=== PATIENT | male | born 1990 | race Caucasian/White ===

== ENCOUNTER 2024-10-06 16:24 | Observation (INO) ==
[2024-10-06] MEDS ORDERED: NS 1,000 ML IV 1,000 ML ONE (16:41)
[2024-10-06 16:51] VITALS: BMI 28.5
[2024-10-06 16:55] LABS: BASOPHILS # (AUTO) 0.1 X10^3/uL (0.0-0.1); BASOPHILS % (AUTO) 1.3 % (0.2-1.0); EOSINOPHILS # (AUTO) 0.1 x10^3/uL (0.0-0.2); EOSINOPHILS % (AUTO) 1.7 % (0.9-2.9); HEMATOCRIT 36.4 % (42.0-54.0); HEMOGLOBIN 12.1 g/dL (13.5-18.0); LYMPHOCYTES # (AUTO) 2.8 X10^3/uL (1.3-2.9); LYMPHOCYTES % (AUTO) 45.8 % (21.0-51.0); MEAN CORPUSCULAR HEMOGLOBIN 29.5 pg (27.0-34.0); MEAN CORPUSCULAR HGB CONC 33.3 g/dL (33.0-35.0); MEAN CORPUSCULAR VOLUME 88.5 fL (80.0-100.0); MEAN PLATELET VOLUME 7.1 fL (7.4-11.0); MONOCYTES # (AUTO) 0.4 x10^3/uL (0.3-0.8); MONOCYTES % (AUTO) 7.4 % (0.0-13.0); NEUTROPHILS # (AUTO) 2.6 x10^3/uL (2.2-4.8); NEUTROPHILS % (AUTO) 43.8 % (42.0-75.0); PLATELET COUNT 265 X10^3/uL (150.0-450.0); RED BLOOD COUNT 4.11 X10^6/uL (4.7-6.0); RED CELL DISTRIBUTION WIDTH 16.2 % (11.6-16.5)
[2024-10-06] MEDS: VANCOMYCIN IV *PREMIX 1 G/200 ML BAG 1 G/200 ML PIGGYBACK IV ONE ×2 (16:59→21:43)
[2024-10-06] MEDS: NS 1,000 ML IV 1,000 ML IV ONE ×2 (17:00→19:17)
[2024-10-06 17:09] LABS: ALANINE AMINOTRANSFERASE 14 Units/L (12-78); ALBUMIN 3.1 g/dL (3.4-5.0); ALKALINE PHOSPHATASE 86 Units/L (46-116); ASPARTATE AMINO TRANSFERASE 9 Units/L (15-37); BLOOD UREA NITROGEN 11 mg/dL (7-18); CARBON DIOXIDE 29.9 mmol/L (21-32); CHLORIDE 94 mmol/L (98-107); COR CA(FOR HYPOALB) 9.7 mg/dL (8.5-10.1); CREATININE 1.11 mg/dL (0.70-1.30); POTASSIUM 4.8 mmol/L (3.5-5.1); SODIUM 132 mmol/L (136-145); TOTAL PROTEIN 7.8 g/dL (6.4-8.2); eGFR NON BLACK RACES > 60 (>60)
[2024-10-06 17:11] LABS: COR NA(FOR HYPERGLY) 146 mmol/L (136-145); GLUCOSE 672 mg/dL (65-99)
[2024-10-06] MEDS: NovoLIN R (or HumuLIN R) SUBCUT ONE (17:23)
[2024-10-06 18:12] LABS: BILIRUBIN,URINE NEGATIVE (NEGATIVE); BLOOD/HEMOGLOBIN,URINE NEGATIVE (NEGATIVE); GLUCOSE, URINE 4+ (NEGATIVE); KETONES,URINE NEGATIVE (NEGATIVE); LEUKOCYTE ESTERASE ,URINE NEGATIVE (NEGATIVE); NITRITES,URINE NEGATIVE (NEGATIVE); PH,URINE 6.5 (5.0 - 8.0); PROTEIN,URINE NEGATIVE (NEGATIVE); UROBILINOGEN,URINE NORMAL (NORMAL)
[2024-10-06 18:13] LABS: APPEARANCE,URINE CLEAR (CLEAR); COLOR,URINE STRAW (YELLOW)
--- NOTE | 2024-10-06 19:37 | DR.EXTPAIN ---
HPI Time seen Time Seen by Provider: 10/06/24 16:42 PCP Primary Care Physician: morgan HPI Comment HPI Comment: Patient with a long history of diabetes and diabetic ulcers on his feet which she states has been going on for 6 years. The wound on the left second toe has been going on for 2 months. Patient's that he was recently seen in [place] and given antibiotics. Patient states he finished his antibiotics (he does not know which kind) about a week ago and his feet started getting red and swollen and the warts have been smelling foul and oozing. The large wound on the right great toe seems to be worse and he said he thinks his toe is going to fall off. Patient states he smokes between 2 and 3 packs a day. Patient states he did cocaine yesterday and does use recreational drugs. Patient states he is also homeless and that he does not have the money to pay for medications so he has not been taking any medications. He denies any fever. Patient states he has no sensation in his feet. Denies pain at this time. Complaint/Symptoms Chief Complaint:: Pt states he has had issues with diabetic wounds on his bilat great toes "for 6 years"; the wound on left second toe for about 2 months. He states "my toe beside the big one is about to fall off"; states the pain at bilat toes is 8/10; has not taken any meds today. Pt states he is diabetic. Self Treatment fo Chief Complaint: Went to [place] [facility] about a month ago, was treated with antibiotics which he did say he completed COVID-19 Coronavirus risk:travel/contact w/high risk person: No Has patient experienced Coronavirus symptoms: No Source History Provided: Patient Mode of arrival Mode of Arrival: Ambulatory Timing Onset of Chief Complaint: 10/06/24 PMH PMH Past Medical History: Yes Past Medical History: Diabetes Past Surgical History: No Family History History of Family Medical Conditions: Yes Family Medical History: Diabetes Mellitus Social History Does patient currently use any type of tobacco product: Yes Have you used tobacco products in the last 12 months: Yes Type of Tobacco Use: Cigarettes Alcohol Use: None Do you use any recreational Drugs:: Yes (cocaine, used yesterday) Lives Where: Homeless Travel Risk Coronavirus risk:travel/contact w/high risk person: No Has patient experienced Coronavirus symptoms: No Infectious screening In the last 2 months have you had wt loss of >10#?: NO Have you had fever, night sweats or hemotysis?: No Have you traveled outside the country in the last 6 months?: No Isolation: Contact ROS Review of Systems Constitutional: No Symptoms Reported Eyes: No Symptoms Reported ENTM: No Symptoms Reported Respiratoy: No Symptoms Reported Cardiovascular: No Symptoms Reported Gastrointestinal/Abdominal: No Symptoms Reported Genitourinary: No Symptoms Reported Neurological: Pre-existing Deficit (Diabetic peripheral neuropathy unchanged fro m previous) Musculoskeletal: No Symptoms Reported Integumentary: See HPI Hematologic/Lymphatic: No Symptoms Reported Endocrine: No Symptoms Reported Psychiatric: No Symptoms Reported All Other Systems: Reviewed and Negative PE Vital Signs Vitals: Vital Signs Temperature 98.1 F Pulse Rate 97 Respiratory Rate 18 Blood Pressure 132/70 O2 Sat by Pulse Oximetry 98 General Limitations: No Limitations General Appearance: Alert and In No Apparent Distress Head Head Exam: Normal Inspection Eyes Eye exam: Normal Appearance ENT ENT Exam: Normal Exam Neck Neck Exam: Normal Inspection Chest Chest Inspection: Normal Inspection Respiratory Respiratory Exam: Normal Lung Sounds Bilat Cardiovascular Cardiovascular Exam: Regular Rate and Normal Rhythm Abdominal Exam Abdominal Exam: Normal Inspection, Normal Bowel Sounds and Soft Extremities Extremities Exam: Other (Multiple diabetic ulcers on bilateral lower extremity with some exudate and surrounding erythema.) Back Back Exam: Normal Inspection Neurological Neurological Exam: Alert, Oriented X3 and CN II-XII Intact Psychiatric Psychiatric Exam: Normal Affect and Normal Mood Skin Skin Exam: Warm, Dry, Intact and Normal Color COURSE Treatment Treatment: Discussed importance of taking medications as instructed, not smoking and not using cocaine or other illegal drugs. Discussed findings of workup. Patient is agreeable to admission for IV antibiotics. Consultation Called: 19:54 Consultation Comments: Discussed case with Dr. Seaman and he is agreeable to admission. [facility] Labs Reviewed 10/06/24 16:50 10/06/24 16:50 Laboratory: WBC 6.0 X10^3/uL (3.6-10.0) 10/06/24 16:50 RBC 4.11 X10^6/uL (4.7-6.0) L 10/06/24 16:50 Hgb 12.1 g/dL (13.5-18.0) L 10/06/24 16:50 Hct 36.4 % (42.0-54.0) L 10/06/24 16:50 MCV 88.5 fL (80.0-100.0) 10/06/24 16:50 MCH 29.5 pg (27.0-34.0) 10/06/24 16:50 MCHC 33.3 g/dL (33.0-35.0) 10/06/24 16:50 RDW 16.2 % (11.6-16.5) 10/06/24 16:50 Plt Count 265 X10^3/uL (150.0-450.0) 10/06/24 16:50 MPV 7.1 fL (7.4-11.0) L 10/06/24 16:50 Neut % (Auto) 43.8 % (42.0-75.0) 10/06/24 16:50 Lymph % (Auto) 45.8 % (21.0-51.0) 10/06/24 16:50 [place] % (Auto) 7.4 % (0.0-13.0) 10/06/24 16:50 Eos % (Auto) 1.7 % (0.9-2.9) 10/06/24 16:50 Baso % (Auto) 1.3 % (0.2-1.0) H 10/06/24 16:50 Neut # (Auto) 2.6 x10^3/uL (2.2-4.8) 10/06/24 16:50 Lymph # (Auto) 2.8 X10^3/uL (1.3-2.9) 10/06/24 16:50 [place] # (Auto) 0.4 x10^3/uL (0.3-0.8) 10/06/24 16:50 Eos # (Auto) 0.1 x10^3/uL (0.0-0.2) 10/06/24 16:50 Baso # (Auto) 0.1 X10^3/uL (0.0-0.1) 10/06/24 16:50 Absolute Nucleated RBC 0.0 /100WBC 10/06/24 16:50 Sodium 132 mmol/L (136-145) L 10/06/24 16:50 Corrected Sodium 146 mmol/L (136-145) H 10/06/24 16:50 Potassium 4.8 mmol/L (3.5-5.1) 10/06/24 16:50 Chloride 94 mmol/L (98-107) L 10/06/24 16:50 Carbon Dioxide 29.9 mmol/L (21-32) 10/06/24 16:50 BUN 11 mg/dL (7-18) 10/06/24 16:50 Creatinine 1.11 mg/dL (0.70-1.30) 10/06/24 16:50 Est GFR (MDRD) Af Amer > 60 (>60) 10/06/24 16:50 Est GFR (MDRD) Non-Af > 60 (>60) 10/06/24 16:50 Glucose 672 mg/dL (65-99) H* 10/06/24 16:50 POC Glucose (mg/dL) 468 mg/dL (65-99) H 10/06/24 19:15 Calcium 9.0 mg/dL (8.5-10.1) 10/06/24 16:50 Corrected Calcium 9.7 mg/dL (8.5-10.1) 10/06/24 16:50 Total Bilirubin 0.40 mg/dL (0.2-1.0) 10/06/24 16:50 AST 9 Units/L (15-37) L 10/06/24 16:50 ALT 14 Units/L (12-78) 10/06/24 16:50 Alkaline Phosphatase 86 Units/L (46-116) 10/06/24 16:50 C-Reactive Protein 56.70 mg/L (0-3.0) H 10/06/24 16:50 Total Protein 7.8 g/dL (6.4-8.2) 10/06/24 16:50 Albumin 3.1 g/dL (3.4-5.0) L 10/06/24 16:50 Globulin 4.7 g/dL (2.5-4.5) H 10/06/24 16:50 Albumin/Globulin Ratio 0.7 Ratio (1.1-2.1) L 10/06/24 16:50 Specimen Type Clean catch urine 10/06/24 18:00 Urine Color Straw (YELLOW) 10/06/24 18:00 Urine Appearance Clear (CLEAR) 10/06/24 18:00 Urine pH 6.5 (5.0 - 8.0) 10/06/24 18:00 Ur Specific [place] 1.015 (1.000-1.030) 10/06/24 18:00 Urine Protein Negative (NEGATIVE) 10/06/24 18:00 Urine Glucose (UA) 4+ (NEGATIVE) 10/06/24 18:00 Urine Ketones Negative (NEGATIVE) 10/06/24 18:00 Urine Blood Negative (NEGATIVE) 10/06/24 18:00 Urine Nitrite Negative (NEGATIVE) 10/06/24 18:00 Urine Bilirubin Negative (NEGATIVE) 10/06/24 18:00 Urine Urobilinogen Normal (NORMAL) 10/06/24 18:00 Ur Leukocyte Esterase Negative (NEGATIVE) 10/06/24 18:00 Acetone, Semi-Quant Negative (NEGATIVE) 10/06/24 16:50 Opioid Opioid Risk Tool Age (Aly box if 16-45): Yes History of Preadolescent Sexual Abuse: No Total: 1 Total Score Risk Category: Low Risk Copyright: [facility] predicting aberrant behaviors Discharge Plan Diagnosis Discharge Problem: Diabetes, Drug abuse, cocaine type, Smoker unmotivated to quit Diabetic foot ulcer Qualifiers: Non-pressure ulcer stage: with muscle involvement without evidence of necrosis Discharge Plan Patient Disposition: ADMITTED INPATIENT Condition: Stable Prescriptions: No Action [facility] Concerns: Post Hospitalization: new medications and changes needed to prevent readmission or further decline. Pt educated and given instructions on all concerns. Plan of Treatment: Continue with present treatment and follow up plan. Pt is to keep follow up appointment as instructed and take medications as ordered. Orders to Discharge Patient Discharge Orders: Transfer (Routine); Ordered 10/06/24 Ordered By: Kaleb Mcpherson Follow ups/Referrals Follow ups/Referrals: [facility],None [Primary Care Provider] - 3 days Instructions Stand Alone Forms: Find Help Web Site, Post Hospital Follow Up Care
[2024-10-06] MEDS: NovoLIN R (or HumuLIN R) IV ONE (19:44)
[2024-10-06] MEDS: ZOSYN VIAL 3.375 GRAMS 3.375 G in NS 100 ML IV 100 ML IV SCH (21:00)
[2024-10-06] MEDS: NS 1,000 ML IV 1,000 ML IV SCH (21:00)
[2024-10-06] MEDS: NS 250 ML IV 25 ML IV PRN (21:00)
[2024-10-06] MEDS ORDERED: NovoLIN R (or HumuLIN R) SUBCUT PRN ×2 (21:00)
[2024-10-06] MEDS: SNACK - Diabetic Appropriate PO SCH (21:43)
[2024-10-06] MEDS: NovoLIN R (or HumuLIN R) SUBCUT PRN (23:12)
[2024-10-07 04:51] LABS: BASOPHILS # (AUTO) 0.1 X10^3/uL (0.0-0.1); BASOPHILS % (AUTO) 0.9 % (0.2-1.0); EOSINOPHILS # (AUTO) 0.2 x10^3/uL (0.0-0.2); EOSINOPHILS % (AUTO) 2.6 % (0.9-2.9); HEMATOCRIT 33.6 % (42.0-54.0); HEMOGLOBIN 11.3 g/dL (13.5-18.0); LYMPHOCYTES # (AUTO) 2.9 X10^3/uL (1.3-2.9); LYMPHOCYTES % (AUTO) 48.6 % (21.0-51.0); MEAN CORPUSCULAR HEMOGLOBIN 29.3 pg (27.0-34.0); MEAN CORPUSCULAR HGB CONC 33.7 g/dL (33.0-35.0); MEAN PLATELET VOLUME 7.7 fL (7.4-11.0); MONOCYTES # (AUTO) 0.4 x10^3/uL (0.3-0.8); MONOCYTES % (AUTO) 7.3 % (0.0-13.0); NEUTROPHILS # (AUTO) 2.4 x10^3/uL (2.2-4.8); NEUTROPHILS % (AUTO) 40.6 % (42.0-75.0); PLATELET COUNT 249 X10^3/uL (150.0-450.0); RED BLOOD COUNT 3.86 X10^6/uL (4.7-6.0); RED CELL DISTRIBUTION WIDTH 16.3 % (11.6-16.5); WHITE BLOOD COUNT 5.9 X10^3/uL (3.6-10.0)
[2024-10-07 05:12] LABS: ALANINE AMINOTRANSFERASE 14 Units/L (12-78); ALBUMIN 2.6 g/dL (3.4-5.0); ALKALINE PHOSPHATASE 75 Units/L (46-116); ASPARTATE AMINO TRANSFERASE 9 Units/L (15-37); BLOOD UREA NITROGEN 9 mg/dL (7-18); CALCIUM 8.8 mg/dL (8.5-10.1); CARBON DIOXIDE 27.6 mmol/L (21-32); CHLORIDE 102 mmol/L (98-107); COR CA(FOR HYPOALB) 9.9 mg/dL (8.5-10.1); COR NA(FOR HYPERGLY) 145 mmol/L (136-145); CREATININE 0.87 mg/dL (0.70-1.30); GLUCOSE 423 mg/dL (65-99); POTASSIUM 4.1 mmol/L (3.5-5.1); SODIUM 137 mmol/L (136-145); TOTAL PROTEIN 6.7 g/dL (6.4-8.2); eGFR NON BLACK RACES > 60 (>60)
[2024-10-07] MEDS: NovoLIN R (or HumuLIN R) ONE ×2 (07:25)
[2024-10-07] MEDS: CONSULT PHARMACY - POTASSIUM & MAGNESIUM XX SCH (07:39)
[2024-10-07] MEDS: VANCOMYCIN IV *PREMIX 1.5 G/300 ML BAG 1.5 G/300 ML PIGGYBACK IV SCH (08:30)
[2024-10-07] MEDS: NS 250 ML IV 0 ML IV ONE (08:40)
--- NOTE | 2024-10-07 08:55 | DR.H&P ---
H&P History & Physical for Day of: H&P Date: 10/06/24 Chief Complaint Chief Complaint: INFECTED WOUND RIGHT FOOT, HIGH BLOOD SUGAR History of Present Illness History of Present Illness: Patient with a long history of diabetes and diabetic ulcers on his feet which she states has been going on for 6 years. The wound on the left second toe has been going on for 2 months. Patient's that he was recently seen in [place] and given antibiotics. Patient states he finished his antibiotics (he does not know which kind) about a week ago and his feet started getting red and swollen and the warts have been smelling foul and oozin g. The large wound on the right great toe seems to be worse and he said he thinks his toe is going to fall off. Patient states he smokes between 2 and 3 packs a day. Patient states he did cocaine yesterday and does use recreational drugs. Patient states he is also homeless and that he does not have the money to pay for medications so he has not been taking any medications. He denies any fever. Patient states he has no sensation in his feet. Denies pain at this time. Past Medical History Past Medical History: Diabetes Family History Family Medical History: Diabetes Mellitus Social History Does patient currently use any type of tobacco product: Yes Have you used tobacco products in the last 12 months: Yes Type of Tobacco Use: Cigarettes Does any household member use tobacco: Yes Alcohol Use: None Drug Use: Cocaine Medications Home Medications: Home Medications Medication Instructions Recorded Confirmed Type NK 10/06/24 10/06/24 History Allergies Allergies Allergy/AdvReac Type Severity Reaction Status Date / Time No Known Allergies Allergy Verified 10/06/24 16:35 Labs 10/07/24 04:03 10/07/24 04:03 Labs: 10/06/24 19:50 Toe - Left Big Wound Gram Stain - Final 10/06/24 19:50 Toe - Right Big Wound Gram Stain - Final Laboratory WBC 5.9 X10^3/uL (3.6-10.0) 10/07/24 04:03 RBC 3.86 X10^6/uL (4.7-6.0) L 10/07/24 04:03 Hgb 11.3 g/dL (13.5-18.0) L 10/07/24 04:03 Hct 33.6 % (42.0-54.0) L 10/07/24 04:03 MCV 87.0 fL (80.0-100.0) 10/07/24 04:03 MCH 29.3 pg (27.0-34.0) 10/07/24 04:03 MCHC 33.7 g/dL (33.0-35.0) 10/07/24 04:03 RDW 16.3 % (11.6-16.5) 10/07/24 04:03 Plt Count 249 X10^3/uL (150.0-450.0) 10/07/24 04:03 MPV 7.7 fL (7.4-11.0) 10/07/24 04:03 Neut % (Auto) 40.6 % (42.0-75.0) L 10/07/24 04:03 Lymph % (Auto) 48.6 % (21.0-51.0) 10/07/24 04:03 [place] % (Auto) 7.3 % (0.0-13.0) 10/07/24 04:03 Eos % (Auto) 2.6 % (0.9-2.9) 10/07/24 04:03 Baso % (Auto) 0.9 % (0.2-1.0) 10/07/24 04:03 Neut # (Auto) 2.4 x10^3/uL (2.2-4.8) 10/07/24 04:03 Lymph # (Auto) 2.9 X10^3/uL (1.3-2.9) 10/07/24 04:03 [place] # (Auto) 0.4 x10^3/uL (0.3-0.8) 10/07/24 04:03 Eos # (Auto) 0.2 x10^3/uL (0.0-0.2) 10/07/24 04:03 Baso # (Auto) 0.1 X10^3/uL (0.0-0.1) 10/07/24 04:03 Absolute Nucleated RBC 0.1 /100WBC 10/07/24 04:03 Sodium 137 mmol/L (136-145) 10/07/24 04:03 Corrected Sodium 145 mmol/L (136-145) 10/07/24 04:03 Potassium 4.1 mmol/L (3.5-5.1) 10/07/24 04:03 Chloride 102 mmol/L (98-107) 10/07/24 04:03 Carbon Dioxide 27.6 mmol/L (21-32) 10/07/24 04:03 BUN 9 mg/dL (7-18) 10/07/24 04:03 Creatinine 0.87 mg/dL (0.70-1.30) 10/07/24 04:03 Est GFR (MDRD) Af Amer > 60 (>60) 10/07/24 04:03 Est GFR (MDRD) Non-Af > 60 (>60) 10/07/24 04:03 Glucose 423 mg/dL (65-99) H 10/07/24 04:03 POC Glucose (mg/dL) 420 mg/dL (65-99) H 10/07/24 05:03 Calcium 8.8 mg/dL (8.5-10.1) 10/07/24 04:03 Corrected Calcium 9.9 mg/dL (8.5-10.1) 10/07/24 04:03 Total Bilirubin 0.20 mg/dL (0.2-1.0) 10/07/24 04:03 AST 9 Units/L (15-37) L 10/07/24 04:03 ALT 14 Units/L (12-78) 10/07/24 04:03 Alkaline Phosphatase 75 Units/L (46-116) 10/07/24 04:03 C-Reactive Protein 56.70 mg/L (0-3.0) H 10/06/24 16:50 Total Protein 6.7 g/dL (6.4-8.2) 10/07/24 04:03 Albumin 2.6 g/dL (3.4-5.0) L 10/07/24 04:03 Globulin 4.1 g/dL (2.5-4.5) 10/07/24 04:03 Albumin/Globulin Ratio 0.6 Ratio (1.1-2.1) L 10/07/24 04:03 Specimen Type Clean catch urine 10/06/24 18:00 Urine Color Straw (YELLOW) 10/06/24 18:00 Urine Appearance Clear (CLEAR) 10/06/24 18:00 Urine pH 6.5 (5.0 - 8.0) 10/06/24 18:00 Ur Specific [place] 1.015 (1.000-1.030) 10/06/24 18:00 Urine Protein Negative (NEGATIVE) 10/06/24 18:00 Urine Glucose (UA) 4+ (NEGATIVE) 10/06/24 18:00 Urine Ketones Negative (NEGATIVE) 10/06/24 18:00 Urine Blood Negative (NEGATIVE) 10/06/24 18:00 Urine Nitrite Negative (NEGATIVE) 10/06/24 18:00 Urine Bilirubin Negative (NEGATIVE) 10/06/24 18:00 Urine Urobilinogen Normal (NORMAL) 10/06/24 18:00 Ur Leukocyte Esterase Negative (NEGATIVE) 10/06/24 18:00 Acetone, Semi-Quant Negative (NEGATIVE) 10/06/24 16:50 Review of Systems Constitutional: No Symptoms Reported Eyes: No Symptoms Reported ENT: No Symptoms Reported Respiratory: No Symptoms Reported Cardiovascular: No Symptoms Reported Gastrointestinal: No Symptoms Reported Genitourinary: No Symptoms Reported Musculoskeletal: Leg Pain and Foot Pain Skin: Wound Neurological: No Symptoms Reported Physical Exam Vital Signs: Vital Signs Temperature 97.3 F Temperature 98.0 F Pulse Rate [Left] 69 Pulse Rate [Left] 75 Respiratory Rate 20 Respiratory Rate 18 Blood Pressure [Left Arm] 101/56 Blood Pressure [Left Arm] 105/54 O2 Sat by Pulse Oximetry 98 O2 Sat by Pulse Oximetry 98 Oriented: Normal Eyes: Normal Ear: Normal Nose: Normal Throat: Dry Respiratory: RLL Diminished and LLL Diminished Cardiovascular: Normal Auscultation: Bowel Sounds: Normal Palpation: Normal Tenderness: Diffuse, Epigastric and Mild Skin: Normal, Decreased Turgur, Red, Tender and Wound Musculoskeletal: Back:Lumbar Psychiatric: Anxiety Mood Description: Anxious Affect: Anxious Speech Pattern: Clear and Appropriate Assessment/Plan (1) Diabetic foot ulcer: Qualifiers: Non-pressure ulcer stage: with muscle involvement without evidence of necrosis Status: Acute Plan: ADMIT, IV HYDRATION, BS CONTROL BC AND WOUND CULTRE ELECTROLYTE REPLACEMENT WOUND CARE, REPEAT AM LABS (2) Diabetes: Status: Acute (3) Hyponatremia: Status: Acute
[2024-10-07] MEDS ORDERED: PHARMACY CONSULT - VANCOMYCIN XX SCH (09:00)
--- NOTE | 2024-10-07 11:37 | DR.CONSULT ---
CONSULT Consultation for Day of: Date: 10/06/24 Chief Complaint Chief Complaint: Diabetes and nonhealing wound to the right plantar great toe, left medial great toe and dorsal surface of left second toe. Allergies Allergies Allergy/AdvReac Type Severity Reaction Status Date / Time No Known Allergies Allergy Verified 10/06/24 16:35 History of Present Illness History of Present Illness: This is a 33-year-old male with diabetes poorly controlled. He recently got out of al[place] and has not been undergoing any health care. He was admitted recently to [facility], [place] and given antibiotics and discharged home. Unfortunately he also smokes 2 to 3 packs cigarettes a day and uses recreational drug including cocaine. Patient admitted with these diabetic wounds. Past Medical History Past Medical History: Diabetes Family History Family Medical History: Diabetes Mellitus Social History Does patient currently use any type of tobacco product: Yes Have you used tobacco products in the last 12 months: Yes Type of Tobacco Use: Cigarettes How many years tobacco product used: 16 Does any household member use tobacco: Yes Alcohol Use: None Drug Use: Cocaine and Other (Assortment of recreational drugs) Medications Home Medications: No Known Allergies Allergy (Verified 10/06/24 16:35) CONTINUE taking the following medications NK 10/06/24 [History] Review of Systems Constitutional: See HPI Eyes: No Symptoms Reported ENT: No Symptoms Reported Respiratory: No Symptoms Reported Cardiovascular: No Symptoms Reported Gastrointestinal: No Symptoms Reported Genitourinary: No Symptoms Reported Musculoskeletal: No Symptoms Reported Skin: See HPI Physical Exam Vital Signs: Vital Signs Temperature 98.1 F Temperature 98.1 F Temperature 98 F Pulse Rate [Left] 90 Pulse Rate [Left] 96 Respiratory Rate 18 Respiratory Rate 18 Blood Pressure [Left Arm] 148/79 Blood Pressure [Left Arm] 143/83 Blood Pressure [Left Arm] 132/76 O2 Sat by Pulse Oximetry 98 O2 Sat by Pulse Oximetry 98 Oriented: Normal, Time, Person and Place Eyes: Normal Ear: Normal Nose: Normal Throat: Normal Respiratory: Clear Throughout Cardiovascular: Normal : Normal Auscultation: Bowel Sounds: Normal Palpation: Normal Tenderness: Normal Skin: Wound (3 cm x 3 center by 0.5 cm wound to the plantar aspect of the right great toe with no significant redness. Small amount of drainage. Less than 1 cm wound to the medial great toe with no drainage. 1 cm x 8 0.8 cm x 0.2 cm wound to the dorsal aspect of the left second toe also with small amount esch) Musculoskeletal: Normal Psychiatric: Normal Mood Description: Calm Affect: Normal Speech Pattern: Clear Plan (1) Diabetes: Status: Acute Plan: All wounds consistent with diabetes. No obvious evidence of drainable fluid or pus. No surgical intervention planned. Patient needs contro l of his blood sugars and needs a regular physician to control his diabetes. Santyl can be added to the wounds. Follow-up with me in 2 weeks after discharge. (2) Diabetic foot ulcer: Status: Acute Qualifiers: Non-pressure ulcer stage: with muscle involvement without evidence of necrosis (3) Hyponatremia: Status: Acute (4) Drug abuse, cocaine type: Status: Acute (5) Smoker unmotivated to quit: Status: Acute
[2024-10-07] MEDS: SANTYL EXT SCH (13:06)
[2024-10-07] MEDS: SANTYL ONE (13:34)
[2024-10-07] MEDS ORDERED: SANTYL EXT SCH (14:00)
[2024-10-08 05:47] LABS: BASOPHILS # (AUTO) 0.1 X10^3/uL (0.0-0.1); BASOPHILS % (AUTO) 1.3 % (0.2-1.0); EOSINOPHILS # (AUTO) 0.1 x10^3/uL (0.0-0.2); EOSINOPHILS % (AUTO) 1.5 % (0.9-2.9); LYMPHOCYTES # (AUTO) 2.9 X10^3/uL (1.3-2.9); LYMPHOCYTES % (AUTO) 56.4 % (21.0-51.0); MEAN CORPUSCULAR HEMOGLOBIN 29.3 pg (27.0-34.0); MEAN CORPUSCULAR HGB CONC 33.4 g/dL (33.0-35.0); MEAN CORPUSCULAR VOLUME 87.9 fL (80.0-100.0); MEAN PLATELET VOLUME 7.5 fL (7.4-11.0); MONOCYTES # (AUTO) 0.4 x10^3/uL (0.3-0.8); MONOCYTES % (AUTO) 8.2 % (0.0-13.0); NEUTROPHILS # (AUTO) 1.7 x10^3/uL (2.2-4.8); NEUTROPHILS % (AUTO) 32.6 % (42.0-75.0); PLATELET COUNT 222 X10^3/uL (150.0-450.0); RED BLOOD COUNT 3.76 X10^6/uL (4.7-6.0); RED CELL DISTRIBUTION WIDTH 16.7 % (11.6-16.5); WHITE BLOOD COUNT 5.1 X10^3/uL (3.6-10.0)
[2024-10-08 06:04] LABS: ALANINE AMINOTRANSFERASE 13 Units/L (12-78); ALBUMIN 2.4 g/dL (3.4-5.0); ALKALINE PHOSPHATASE 64 Units/L (46-116); ASPARTATE AMINO TRANSFERASE 9 Units/L (15-37); BLOOD UREA NITROGEN 11 mg/dL (7-18); CALCIUM 8.6 mg/dL (8.5-10.1); CARBON DIOXIDE 28.5 mmol/L (21-32); CHLORIDE 104 mmol/L (98-107); COR CA(FOR HYPOALB) 9.9 mg/dL (8.5-10.1); COR NA(FOR HYPERGLY) 142 mmol/L (136-145); CREATININE 0.96 mg/dL (0.70-1.30); GLUCOSE 290 mg/dL (65-99); POTASSIUM 4.4 mmol/L (3.5-5.1); SODIUM 137 mmol/L (136-145); TOTAL PROTEIN 6.3 g/dL (6.4-8.2); eGFR NON BLACK RACES > 60 (>60)
[2024-10-08] MEDS: PHARMACY COMMENT IV SCH (07:45)
[2024-10-08 07:57] VITALS: PULSE 68; RESP 20
[2024-10-08 08:44] LABS: CREATININE 0.9 mg/dL (0.70-1.30); VANCOMYCIN,TROUGH 9.1 ug/mL (15-20)
[2024-10-08] MEDS: VANCOMYCIN IV *PREMIX 1.25 G/250 ML BAG 1.25 G/250 ML PIGGYBACK IV SCH (09:06)
[2024-10-08] MEDS: GLUCOPHAGE XR 24-HR PO SCH (09:07)
--- NOTE | 2024-10-08 10:12 | RAD ---
EXAM: FOOT, LEFT three-view HISTORY: DIABETIC FOOT ULCERS; COMPARISON: None FINDINGS: No acute fracture or dislocation. No acute soft tissue abnormality. Calcaneal enthesophyte(s). IMPRESSION: No acute fracture or dislocation. THIS IS AN ELECTRONICALLY VERIFIED FINAL REPORT 10/08/2024 10:09 AM - Electronically signed by Chris Jackson MD
--- NOTE | 2024-10-08 10:13 | RAD ---
EXAM:FOOT, RIGHT three-viewHISTORY:DIABETIC FOOT ULCERS;COMPARISON:NoneFINDINGS:Portions of the right foot are not included in the field of view. No acute fracture or dislocation. No acute soft tissue abnormality. The talus and calcaneus appear intact.IMPRESSION:No acute fracture or dislocation in the visualized osseous structures.THIS IS AN ELECTRONICALLY VERIFIED FINAL REPORT10/08/2024 10:09 AM - Electronically signed by Chris Jackson MD
[2024-10-08 13:04] VITALS: BP 101/55; TEMP 97.6; O2SAT 98
[2024-10-08] MEDS: SANTYL EXT SCH (13:27)
[2024-10-08] MEDS: HIBICLENS WASH EXT SCH (13:27)
[2024-10-08] MEDS ORDERED: SANTYL EXT SCH (14:00)
[2024-10-09] MEDS ORDERED: PHARMACY COMMENT IV ONE (05:30)
== END 2024-10-08 15:15 | disposition home or self-care (01) ==
LOC: MED/SURG 16:24 → ER 16:24 → MED/SURG 20:29
PROVIDERS: ADMIT Internal Medicine; ATTEND Internal Medicine
DX: B95.7 Other staphylococcus as the cause of diseases classified elsewhere; Z86.19 Personal history of other infectious and parasitic diseases; Z59.86 Financial insecurity; B95.4 Other streptococcus as the cause of diseases classified elsewhere; L97.525 Non-pressure chronic ulcer of other part of left foot with muscle involvement without evidence of necrosis; F14.10 Cocaine abuse, uncomplicated; Z91.141 Patient's other noncompliance with medication regimen due to financial hardship; Z16.11 Resistance to penicillins; B96.4 Proteus (mirabilis) (morganii) as the cause of diseases classified elsewhere; L97.515 Non-pressure chronic ulcer of other part of right foot with muscle involvement without evidence of necrosis; B95.1 Streptococcus, group B, as the cause of diseases classified elsewhere; Z16.29 Resistance to other single specified antibiotic; E11.65 Type 2 diabetes mellitus with hyperglycemia; Z59.00 Homelessness unspecified; Z29.89 Encounter for other specified prophylactic measures; Z72.0 Tobacco use; E11.621 Type 2 diabetes mellitus with foot ulcer; Z59.82 Transportation insecurity; Z16.19 Resistance to other specified beta lactam antibiotics

== ENCOUNTER 2024-12-09 14:49 | Inpatient (IN) ==
[2024-12-09 18:42] LABS: MEAN PLATELET VOLUME 7.4 fL (7.4-11.0); RED CELL DISTRIBUTION WIDTH 13.9 % (11.6-16.5)
[2024-12-09 18:55] LABS: COR CA(FOR HYPOALB) 9.6 mg/dL (8.5-10.1); COR NA(FOR HYPERGLY) 142 mmol/L (136-145); CREATININE 1.26 mg/dL (0.70-1.30); eGFR NON BLACK RACES > 60 (>60)
[2024-12-09] MEDS: NovoLIN R (or HumuLIN R) SUBCUT PRN (19:08)
[2024-12-09] MEDS: SNACK - Diabetic Appropriate PO SCH (22:05)
[2024-12-09] MEDS: ZOSYN VIAL 3.375 GRAMS 3.375 G in NS 100 ML IV 100 ML IV SCH (22:05)
[2024-12-10 05:56] LABS: MEAN PLATELET VOLUME 7.4 fL (7.4-11.0); RED CELL DISTRIBUTION WIDTH 14.2 % (11.6-16.5)
[2024-12-10 06:06] LABS: COR CA(FOR HYPOALB) 9.6 mg/dL (8.5-10.1); COR NA(FOR HYPERGLY) 143 mmol/L (136-145); CREATININE 0.97 mg/dL (0.70-1.30); eGFR NON BLACK RACES > 60 (>60)
--- NOTE | 2024-12-10 09:00 | DR.H&P ---
H&P History & Physical for Day of: H&P Date: 12/09/24 Chief Complaint Chief Complaint: Redness and swelling at right great toe ray amputation site History of Present Illness History of Present Illness: This is a 34-year-old male with history of diabetes and osteomyelitis of the right great toe and left second toe requiring amputation. He is very noncompliant, he is homeless. He does not take care of his wounds. He does have significant history of diabetes as well as tobacco abuse history and use of cocaine methamphetamine and marijuana. Patient had been seen recently for amputation of the right great toe and left second toe. He was seen in the office and has significant redness and swelling and drainage from the right great toe ray amputation site which is open. The left second toe ray potation site is open with chronic eschar. He was admitted for IV antibiotics and possible incision and drainage of the area of the right foot. He is at significant risk of limb loss. Past Medical History Past Medical History: Diabetes and Hypertension Additional Medical History: drug use Past Surgical History Surgical History: No History Family History Family Medical History: Diabetes Mellitus Social History Does patient currently use any type of tobacco product: Yes Type of Tobacco Use: Cigarettes Alcohol Use: None Drug Use: None Allergies Allergies Allergy/AdvReac Type Severity Reaction Status Date / Time No Known Allergies Allergy Verified 12/09/24 16:34 Labs 12/10/24 05:47 12/10/24 05:47 Labs: 12/09/24 22:25 Toe - Right Big Wound Gram Stain - Final 12/09/24 22:30 Toe - Left Second Wound Gram Stain - Final Laboratory WBC 6.8 X10^3/uL (3.6-10.0) 12/10/24 05:47 RBC 4.11 X10^6/uL (4.7-6.0) L 12/10/24 05:47 Hgb 11.5 g/dL (13.5-18.0) L 12/10/24 05:47 Hct 33.4 % (42.0-54.0) L 12/10/24 05:47 MCV 81.2 fL (80.0-100.0) 12/10/24 05:47 MCH 27.9 pg (27.0-34.0) 12/10/24 05:47 MCHC 34.4 g/dL (33.0-35.0) 12/10/24 05:47 RDW 14.2 % (11.6-16.5) 12/10/24 05:47 Plt Count 303 X10^3/uL (150.0-450.0) 12/10/24 05:47 MPV 7.4 fL (7.4-11.0) 12/10/24 05:47 Neut % (Auto) 52.6 % (42.0-75.0) 12/10/24 05:47 Lymph % (Auto) 36.5 % (21.0-51.0) 12/10/24 05:47 [place] % (Auto) 8.9 % (0.0-13.0) 12/10/24 05:47 Eos % (Auto) 1.5 % (0.9-2.9) 12/10/24 05:47 Baso % (Auto) 0.5 % (0.2-1.0) 12/10/24 05:47 Neut # (Auto) 3.6 x10^3/uL (2.2-4.8) 12/10/24 05:47 Lymph # (Auto) 2.5 X10^3/uL (1.3-2.9) 12/10/24 05:47 [place] # (Auto) 0.6 x10^3/uL (0.3-0.8) 12/10/24 05:47 Eos # (Auto) 0.1 x10^3/uL (0.0-0.2) 12/10/24 05:47 Baso # (Auto) 0.0 X10^3/uL (0.0-0.1) 12/10/24 05:47 Absolute Nucleated RBC 0.0 /100WBC 12/10/24 05:47 Sodium 134 mmol/L (136-145) L 12/10/24 05:47 Corrected Sodium 143 mmol/L (136-145) 12/10/24 05:47 Potassium 4.1 mmol/L (3.5-5.1) 12/10/24 05:47 Chloride 100 mmol/L (98-107) 12/10/24 05:47 Carbon Dioxide 27.2 mmol/L (21-32) 12/10/24 05:47 BUN 17 mg/dL (7-18) 12/10/24 05:47 Creatinine 0.97 mg/dL (0.70-1.30) 12/10/24 05:47 Est GFR (MDRD) Af Amer > 60 (>60) 12/10/24 05:47 Est GFR (MDRD) Non-Af > 60 (>60) 12/10/24 05:47 Glucose 465 mg/dL (65-99) H 12/10/24 05:47 POC Glucose (mg/dL) 438 mg/dL (65-99) H 12/10/24 06:26 Calcium 8.2 mg/dL (8.5-10.1) L 12/10/24 05:47 Corrected Calcium 9.6 mg/dL (8.5-10.1) 12/10/24 05:47 Total Bilirubin 0.30 mg/dL (0.2-1.0) 12/10/24 05:47 AST 9 Units/L (15-37) L 12/10/24 05:47 ALT 10 Units/L (12-78) L 12/10/24 05:47 Alkaline Phosphatase 98 Units/L (46-116) 12/10/24 05:47 Total Protein 7.9 g/dL (6.4-8.2) 12/10/24 05:47 Albumin 2.2 g/dL (3.4-5.0) L 12/10/24 05:47 Globulin 5.7 g/dL (2.5-4.5) H 12/10/24 05:47 Albumin/Globulin Ratio 0.4 Ratio (1.1-2.1) L 12/10/24 05:47 Review of Systems Constitutional: See HPI Eyes: No Symptoms Reported ENT: No Symptoms Reported Respiratory: No Symptoms Reported Cardiovascular: No Symptoms Reported Gastrointestinal: No Symptoms Reported Genitourinary: No Symptoms Reported Musculoskeletal: Foot Pain (Redness swelling and edema at site of right great toe ray amputation with evidence of drainage which is purulent. Open wound at site of left second toe amputation with chronic eschar no obvious cellulitis there.) Skin: Wound (As described above. Open site of right great amputation is 3 x 3 x 1.5 cm. Wound to the left foot is 2 x 2 x 1.5 cm with eschar) Physical Exam Vital Signs: Vital Signs Temperature 97.7 F Temperature 98.5 F Pulse Rate [Right Brachial] 77 Pulse Rate [Right Brachial] 90 Respiratory Rate 20 Respiratory Rate 18 Blood Pressure [Right Arm] 106/52 Blood Pressure [Right Arm] 130/60 O2 Sat by Pulse Oximetry 98 O2 Sat by Pulse Oximetry 96 Oriented: Normal, Time, Person and Place Eyes: Normal Ear: Normal Nose: Normal Throat: Normal Respiratory: Clear Throughout Cardiovascular: Normal : Normal Auscultation: Bowel Sounds: Normal Palpation: Normal Tenderness: Normal Skin: Wound (See descriptions of wounds above) Musculoskeletal: Normal Psychiatric: Depression Mood Description: Withdrawn Affect: Flat Speech Pattern: Clear and Appropriate Assessment/Plan (1) Cellulitis of right foot: Status: Acute Plan: Patient to be started on IV antibiotics. Will consult the medicine service. Patient will most likely require incision and drainage of the right foot. (2) Diabetes: Qualifiers: Diabetes mellitus complication status: with other specified complication Diabetes mellitus prototype engineer insulin use: without long-term use Diabetes mellitus type: type 2 Qualified Code(s): E11.69 - Type 2 diabetes mellitus with other specified complication Status: Chronic (3) Diabetic foot ulcer: Qualifiers: Diabetes mellitus type: type 2 Diabetic foot ulcer location: toe L aterality: right Non-pressure ulcer stage: with other severity Qualified Code(s): E11.621 - Type 2 diabetes mellitus with foot ulcer; L97.518 - Non- pressure chronic ulcer of other part of right foot with other specified severity Status: Chronic (4) Drug abuse, cocaine type: Status: Chronic (5) Smoker unmotivated to quit: Status: Acute (6) Osteomyelitis: Qualifiers: Laterality: right Osteomyelitis location: foot Osteomyelitis type: u nspecified type Qualified Code(s): M86.9 - Osteomyelitis, unspecified Status: Acute
[2024-12-10] MEDS ORDERED: PERCOCET TAB 5/325 MG PO PRN (09:01)
--- NOTE | 2024-12-10 10:45 | DR.CONSULT ---
CONSULT Consultation for Day of: Date: 12/10/24 Chief Complaint Chief Complaint: right foot swelling, drainage Allergies Allergies Allergy/AdvReac Type Severity Reaction Status Date / Time No Known Allergies Allergy Verified 12/09/24 16:34 History of Present Illness History of Present Illness: Mr. Joy is a 34-year-old male with a past medical history of noncompliance, uncontrolled diabetes, osteomyelitis requiring amputation of right great toe and left second toe. He also has a history of polysubstance abuse. He was discharged previously on p.o. antibiotics and diabetic medications. He reports that he has been homeless and living in a [place]. He does not take any medications. He has not been able to take care of his wounds. He was noted to have significant redness and swelling of the right toe. He was admitted for IV antibiotics and further treatment. His glucose levels have been elevated. He is currently on sliding scale. Medicine was consulted. Labs/imaging reviewed: - WBC 6.8 hemoglobin 11.5 glucose 465 creatinine 0.97 -Previous A1c 12.5 -Wound culture: Gram-positive cocci Plan: Follow surgery recommendations. Plan for I&D. Continue IV antibiotics. Follow final cultures. Will start 70/30 insulin 15 units twice a day. Continue SSI. Diabetic diet. Replace electrolytes as per protocol. Monitor a.m. labs and imaging. Past Medical History Past Medical History: Diabetes and Hypertension Additional Medical History: drug use Past Surgical History Surgical History: No History Family History Family Medical History: Diabetes Mellitus Social History Does patient currently use any type of tobacco product: Yes Type of Tobacco Use: Cigarettes Alcohol Use: None Drug Use: None Medications Home Medications: No Known Allergies Allergy (Verified 12/09/24 16:34) Review of Systems Constitutional: Weakness Eyes: No Symptoms Reported Respiratory: No Symptoms Reported Cardiovascular: No Symptoms Reported Gastrointestinal: No Symptoms Reported Genitourinary: No Symptoms Reported Musculoskeletal: Foot Pain Skin: Wound Neurological: No Symptoms Reported Physical Exam Vital Signs: Vital Signs Temperature 97.7 F Temperature 98.5 F Pulse Rate [Right Brachial] 77 Pulse Rate [Right Brachial] 90 Respiratory Rate 20 Respiratory Rate 18 Blood Pressure [Right Arm] 106/52 Blood Pressure [Right Arm] 130/60 O2 Sat by Pulse Oximetry 98 O2 Sat by Pulse Oximetry 96 Oriented: Normal Respiratory: Clear Throughout Cardiovascular: Normal Auscultation: Bowel Sounds: Normal Palpation: Normal Tenderness: Normal Musculoskeletal: Right, Left and Foot (wrapped in dressing, amputations noted ) Psychiatric: Normal Mood Description: Calm Affect: Normal Speech Pattern: Clear and Appropriate Plan (1) Non compliance with medical treatment: Status: Acute (2) Cellulitis of right foot: Status: Acute (3) Uncontrolled diabetes mellitus: Status: Chronic Qualifiers: Diabetes mellitus type: type 1 Glycemic state: with hyperglycemia Qualified Code(s): E10.65 - Type 1 diabetes mellitus with hyperglycemia (4) Diabetic foot ulcer: Status: Chronic Qualifiers: Diabetes mellitus type: type 2 Diabetic foot ulcer location: toe Laterality: right Non-pressure ulcer stage: with other severity Qualified Code(s): E11.621 - Type 2 diabetes mellitus with foot ulcer; L97.518 - Non- pressure chronic ulcer of other part of right foot with other specified severity (5) Drug abuse, cocaine type: Status: Chronic (6) Smoker unmotivated to quit: Status: Chronic (7) Osteomyelitis: Status: Chronic Qualifiers: Laterality: right Osteomyelitis location: foot Osteomyelitis type: unspecified type Qualified Code(s): M86.9 - Osteomyelitis, unspecified
[2024-12-10] MEDS: HumuLIN 70/30 (NovoLIN 70/30) SC SCH (17:25)
[2024-12-10] MEDS ORDERED: SNACK - Diabetic Appropriate PO SCH (20:00)
[2024-12-11 06:13] LABS: MEAN PLATELET VOLUME 7.8 fL (7.4-11.0); RED CELL DISTRIBUTION WIDTH 14.0 % (11.6-16.5)
[2024-12-11 06:27] LABS: COR CA(FOR HYPOALB) 9.9 mg/dL (8.5-10.1); COR NA(FOR HYPERGLY) 139 mmol/L (136-145); CREATININE 0.63 mg/dL (0.70-1.30); eGFR NON BLACK RACES > 60 (>60)
[2024-12-11] MEDS: LOVENOX INJ 40 MG SYR SC SCH (09:19)
--- NOTE | 2024-12-11 09:56 | NOTE.SOAP ---
Soap Note Note for Day of Date of Exam: 12/10/24 Subjective Data Subjective Data: Patient receiving antibiotics. Blood sugars greater than 400. Will need to assess for surgical intervention of the right foot at amputations Objective Data Temperature: 98.4 F Pulse Rate: 77 Respiratory Rate: 20 Blood Pressure: 106/52 O2 Sat by Pulse Oximetry: 98 Objective Data: Blood sugar greater than 400. Patient with wound to the right great toe. Receiving IV antibiotics Assessment Assessment: Cellulitis/abscess right foot. Plan Plan: Continue IV antibiotics. Draughtsman with internal medicine
[2024-12-11] MEDS: NICOTINE PATCH TD SCH (10:33)
--- NOTE | 2024-12-11 10:35 | PCM.PROG ---
Progress Note Progress Note for Day of Date of Exam: 12/11/24 Subjective Subjective: Patient seen at bedside, no acute events overnight. He is currently admitted for osteomyelitis and right foot infection. His blood sugars have been elevated due to uncontrolled diabetes. He was started on 70/30 insulin yesterday, blood sugars improved to 200s. He remains on IV antibiotics. Dr. Bone planning to do I&D. Labs/imaging reviewed: - WBC 6.7 hemoglobin 11.3 potassium 3.7 creatinine 0.63 glucose 200 - Wound culture reviewed, Group B strep, sensitive to linezolid Plan: Continue IV Zosyn, add linezolid. Follow-up pending cultures. Increase insulin 70/30 to 17 units twice daily. Continue SSI. Follow surgery recommendations. Continue wound care and dressing change as per protocol. Replace electrolytes as per protocol. Monitor a.m. labs and imaging. Past Medical Family Social History Allergies: Allergies No Known Allergies Allergy (Verified 12/09/24 16:34) Vital Signs and I&O's Vital Signs: Vital Signs Temperature 98.4 F Temperature 98.2 F Pulse Rate [Right Brachial] 72 Pulse Rate 77 Respiratory Rate 20 Respiratory Rate 18 Blood Pressure [Right Arm] 119/67 Blood Pressure 106/52 O2 Sat by Pulse Oximetry 98 O2 Sat by Pulse Oximetry 98 Intake and Output: Intake & Output 12/08/24 12/09/24 12/10/24 12/11/24 23:59 23:59 23:59 23:59 Intake Total 1934 60 / 60 Balance 1934 60 60 Physical Exam Oriented: Normal Eyes: Normal Ear: Normal Nose: Normal Throat: Normal Cardiovascular: Normal : Normal Auscultation: Bowel Sounds: Normal Tenderness: Normal Skin: Wound (See descriptions of wounds above) Musculoskeletal: Right, Left and Foot (wrapped in dressing, amputations noted ) Psychiatric: Normal Mood Description: Calm Affect: Normal Speech Pattern: Slurred Laboratory and Diagnostics 12/11/24 05:20 12/11/24 05:20 Labs: 12/09/24 22:25 Toe - Right Big Wound Gram Stain - Final 12/09/24 22:25 Toe - Right Big Wound Culture - Preliminary 12/09/24 22:30 Toe - Left Second Wound Gram Stain - Final 12/09/24 22:30 Toe - Left Second Wound Culture - Preliminary Strep Agalactiae - (Group B)#2 Laboratory WBC 6.7 X10^3/uL (3.6-10.0) 12/11/24 05:20 RBC 4.09 X10^6/uL (4.7-6.0) L 12/11/24 05:20 Hgb 11.3 g/dL (13.5-18.0) L 12/11/24 05:20 Hct 33.5 % (42.0-54.0) L 12/11/24 05:20 MCV 82.0 fL (80.0-100.0) 12/11/24 05:20 MCH 27.5 pg (27.0-34.0) 12/11/24 05:20 MCHC 33.6 g/dL (33.0-35.0) 12/11/24 05:20 RDW 14.0 % (11.6-16.5) 12/11/24 05:20 Plt Count 302 X10^3/uL (150.0-450.0) 12/11/24 05:20 MPV 7.8 fL (7.4-11.0) 12/11/24 05:20 Neut % (Auto) 45.4 % (42.0-75.0) 12/11/24 05:20 Lymph % (Auto) 45.1 % (21.0-51.0) 12/11/24 05:20 [place] % (Auto) 7.5 % (0.0-13.0) 12/11/24 05:20 Eos % (Auto) 1.6 % (0.9-2.9) 12/11/24 05:20 Baso % (Auto) 0.4 % (0.2-1.0) 12/11/24 05:20 Neut # (Auto) 3.1 x10^3/uL (2.2-4.8) 12/11/24 05:20 Lymph # (Auto) 3.0 X10^3/uL (1.3-2.9) H 12/11/24 05:20 [place] # (Auto) 0.5 x10^3/uL (0.3-0.8) 12/11/24 05:20 Eos # (Auto) 0.1 x10^3/uL (0.0-0.2) 12/11/24 05:20 Baso # (Auto) 0.0 X10^3/uL (0.0-0.1) 12/11/24 05:20 Absolute Nucleated RBC 0.2 /100WBC 12/11/24 05:20 Sodium 137 mmol/L (136-145) 12/11/24 05:20 Corrected Sodium 139 mmol/L (136-145) 12/11/24 05:20 Potassium 3.7 mmol/L (3.5-5.1) 12/11/24 05:20 Chloride 102 mmol/L (98-107) 12/11/24 05:20 Carbon Dioxide 28.5 mmol/L (21-32) 12/11/24 05:20 BUN 15 mg/dL (7-18) 12/11/24 05:20 Creatinine 0.63 mg/dL (0.70-1.30) L 12/11/24 05:20 Est GFR (MDRD) Af Amer > 60 (>60) 12/11/24 05:20 Est GFR (MDRD) Non-Af > 60 (>60) 12/11/24 05:20 Glucose 204 mg/dL (65-99) H 12/11/24 05:20 POC Glucose (mg/dL) 200 mg/dL (65-99) H 12/11/24 05:45 Calcium 8.5 mg/dL (8.5-10.1) 12/11/24 05:20 Corrected Calcium 9.9 mg/dL (8.5-10.1) 12/11/24 05:20 Total Bilirubin 0.30 mg/dL (0.2-1.0) 12/11/24 05:20 AST 9 Units/L (15-37) L 12/11/24 05:20 ALT 10 Units/L (12-78) L 12/11/24 05:20 Alkaline Phosphatase 84 Units/L (46-116) 12/11/24 05:20 Total Protein 7.6 g/dL (6.4-8.2) 12/11/24 05:20 Albumin 2.2 g/dL (3.4-5.0) L 12/11/24 05:20 Globulin 5.4 g/dL (2.5-4.5) H 12/11/24 05:20 Albumin/Globulin Ratio 0.4 Ratio (1.1-2.1) L 12/11/24 05:20 Plan (1) Non compliance with medical treatment: Status: Acute (2) Cellulitis of right foot: Status: Acute (3) Uncontrolled diabetes mellitus: Status: Chronic Qualifiers: Diabetes mellitus type: type 1 Glycemic state: with hyperglycemia Q ualified Code(s): E10.65 - Type 1 diabetes mellitus with hyperglycemia (4) Diabetic foot ulcer: Status: Chronic Qualifiers: Diabetes mellitus type: type 2 Diabetic foot ulcer location: toe L aterality: right Non-pressure ulcer stage: with other severity Qualified Code(s): E11.621 - Type 2 diabetes mellitus with foot ulcer; L97.518 - Non- pressure chronic ulcer of other part of right foot with other specified severity (5) Drug abuse, cocaine type: Status: Chronic (6) Smoker unmotivated to quit: Status: Chronic (7) Osteomyelitis: Status: Chronic Qualifiers: Laterality: right Osteomyelitis location: foot Osteomyelitis type: u nspecified type Qualified Code(s): M86.9 - Osteomyelitis, unspecified
[2024-12-11] MEDS: ZYVOX 600MG IV 600 MG/300 ML BAG IV SCH (11:41)
[2024-12-11] MEDS: HumuLIN 70/30 (NovoLIN 70/30) SC SCH (16:53)
--- NOTE | 2024-12-11 23:41 | NOTE.SOAP ---
Soap Note Note for Day of Date of Exam: 12/11/24 Subjective Data Subjective Data: Patient unchanged. Has been afebrile however. Blood sugars are down to 200 range. Appreciate consultation from the internal medicine service. Objective Data Temperature: 97.4 F Pulse Rate: 77 Respiratory Rate: 19 Blood Pressure: 125/59 O2 Sat by Pulse Oximetry: 99 Objective Data: Redness left of right foot amputation site of great toe. Still with some purulent drainage. Cultures growing group B streptococcus sensitive to Linzeloid which was added to the Zosyn Assessment Assessment: Infected right great toe ray amputation site. [id number] diabetes Plan Plan: Continue IV antibiotics. Continue control of blood sugars as per internal medicine
[2024-12-12 12:53] VITALS: BMI 26.9
[2024-12-12] MEDS: HumuLIN 70/30 (NovoLIN 70/30) SC SCH (17:24)
--- NOTE | 2024-12-13 00:02 | NOTE.SOAP ---
Soap Note Note for Day of Date of Exam: 12/12/24 Subjective Data Subjective Data: Patient remained stable. Afebrile. Blood sugars being treated by the internal medicine service. Drainage is slowing and redness improving of the right foot at site of right great toe ray amputation Objective Data Temperature: 98.1 F Pulse Rate: 76 Respiratory Rate: 19 Blood Pressure: 126/66 O2 Sat by Pulse Oximetry: 98 Objective Data: Just improving of the right great toe amputation site. Hemoglobin equals 11.3. White blood cell count 6700. Blood sugar 204 this morning Assessment Assessment: Cellulitis right great toe ray amputation site. Hyperglycemia. Plan Plan: Continue IV antibiotics. Blood sugars being managed by internal medicine service
[2024-12-13 05:36] LABS: MEAN PLATELET VOLUME 7.6 fL (7.4-11.0); RED CELL DISTRIBUTION WIDTH 13.8 % (11.6-16.5)
[2024-12-13 05:47] LABS: COR CA(FOR HYPOALB) 9.6 mg/dL (8.5-10.1); COR NA(FOR HYPERGLY) 143 mmol/L (136-145); CREATININE 0.79 mg/dL (0.70-1.30); eGFR NON BLACK RACES > 60 (>60)
--- NOTE | 2024-12-13 09:51 | PCM.PROG ---
Progress Note Progress Note for Day of Date of Exam: 12/12/24 Subjective Subjective: Patient resting in bed this morning. No acute events overnight. He is currently admitted for osteomyelitis and right foot infection. His blood sugars have been elevated due to uncontrolled diabetes. He was started on 70/30 insulin, blood sugars improved. He remains on IV antibiotics. Dr. Bone planning to do I&D. Labs/imaging reviewed: - WBC 6.7, hemoglobin 11.3, platelets 302, sodium 137, potassium 3.7, creatinine 0.63, glucose 204. - Wound culture reviewed, Group B strep, sensitive to linezolid Plan: Continue IV Zosyn and linezolid. Increase insulin 70/30 to 25 units twice daily. Continue SSI. Continue wound care and dressing change as per protocol. Replace electrolytes as per protocol. Primary to continue management. Medicine signing off. Past Medical Family Social History Allergies: Allergies No Known Allergies Allergy (Verified 12/09/24 16:34) Review of Systems ROS changes noted: see HPI Vital Signs and I&O's Vital Signs: Vital Signs Temperature 98.0 F Temperature 97.9 F Pulse Rate [Right Brachial] 71 Pulse Rate [Right Brachial] 71 Respiratory Rate 21 Respiratory Rate 19 Blood Pressure [Right Arm] 133/75 Blood Pressure [Right Arm] 120/77 O2 Sat by Pulse Oximetry 99 O2 Sat by Pulse Oximetry 98 Intake and Output: Intake & Output 12/10/24 12/11/24 12/12/24 12/13/24 23:59 23:59 23:59 23:59 Intake Total 1934 624 / 624 1097 / 1097 465 / 465 Balance 1934 624 / 624 1097 / 1097 465 / 465 Physical Exam Oriented: Normal Eyes: Normal Ear: Normal Nose: Normal Throat: Normal Respiratory: Normal Cardiovascular: Normal : Normal Auscultation: Bowel Sounds: Normal Tenderness: Normal Skin: Wound (See descriptions of wounds above) Musculoskeletal: Right, Left and Foot (wrapped in dressing, amputations noted ) Psychiatric: Normal Mood Description: Calm Affect: Normal Speech Pattern: Clear and Appropriate Laboratory and Diagnostics 12/13/24 05:04 12/13/24 05:04 Labs: 12/09/24 22:25 Toe - Right Big Wound Gram Stain - Final 12/09/24 22:25 Toe - Right Big Wound Culture - Final Strep Agalactiae - (Group B) 12/09/24 22:30 Toe - Left Second Wound Gram Stain - Final 12/09/24 22:30 Toe - Left Second Wound Culture - Final Strep Agalactiae - (Group B)#2 Strep Agalactiae - (Group B) Laboratory WBC 5.6 X10^3/uL (3.6-10.0) 12/13/24 05:04 RBC 4.24 X10^6/uL (4.7-6.0) L 12/13/24 05:04 Hgb 11.8 g/dL (13.5-18.0) L 12/13/24 05:04 Hct 34.5 % (42.0-54.0) L 12/13/24 05:04 MCV 81.3 fL (80.0-100.0) 12/13/24 05:04 MCH 27.9 pg (27.0-34.0) 12/13/24 05:04 MCHC 34.3 g/dL (33.0-35.0) 12/13/24 05:04 RDW 13.8 % (11.6-16.5) 12/13/24 05:04 Plt Count 298 X10^3/uL (150.0-450.0) 12/13/24 05:04 MPV 7.6 fL (7.4-11.0) 12/13/24 05:04 Neut % (Auto) 38.1 % (42.0-75.0) L 12/13/24 05:04 Lymph % (Auto) 49.6 % (21.0-51.0) 12/13/24 05:04 [place] % (Auto) 8.8 % (0.0-13.0) 12/13/24 05:04 Eos % (Auto) 2.5 % (0.9-2.9) 12/13/24 05:04 Baso % (Auto) 1.0 % (0.2-1.0) 12/13/24 05:04 Neut # (Auto) 2.1 x10^3/uL (2.2-4.8) L 12/13/24 05:04 Lymph # (Auto) 2.8 X10^3/uL (1.3-2.9) 12/13/24 05:04 [place] # (Auto) 0.5 x10^3/uL (0.3-0.8) 12/13/24 05:04 Eos # (Auto) 0.1 x10^3/uL (0.0-0.2) 12/13/24 05:04 Baso # (Auto) 0.1 X10^3/uL (0.0-0.1) 12/13/24 05:04 Absolute Nucleated RBC 0.3 /100WBC 12/13/24 05:04 Sodium 138 mmol/L (136-145) 12/13/24 05:04 Corrected Sodium 143 mmol/L (136-145) 12/13/24 05:04 Potassium 4.3 mmol/L (3.5-5.1) 12/13/24 05:04 Chloride 102 mmol/L (98-107) 12/13/24 05:04 Carbon Dioxide 31.5 mmol/L (21-32) 12/13/24 05:04 BUN 9 mg/dL (7-18) 12/13/24 05:04 Creatinine 0.79 mg/dL (0.70-1.30) 12/13/24 05:04 Est GFR (MDRD) Af Amer > 60 (>60) 12/13/24 05:04 Est GFR (MDRD) Non-Af > 60 (>60) 12/13/24 05:04 Glucose 322 mg/dL (65-99) H 12/13/24 05:04 POC Glucose (mg/dL) 294 mg/dL (65-99) H 12/13/24 05:35 Calcium 8.0 mg/dL (8.5-10.1) L 12/13/24 05:04 Corrected Calcium 9.6 mg/dL (8.5-10.1) 12/13/24 05:04 Magnesium 1.7 mg/dL (2.0-2.9) L 12/13/24 05:04 Total Bilirubin 0.20 mg/dL (0.2-1.0) 12/13/24 05:04 AST 9 Units/L (15-37) L 12/13/24 05:04 ALT 10 Units/L (12-78) L 12/13/24 05:04 Alkaline Phosphatase 76 Units/L (46-116) 12/13/24 05:04 Total Protein 7.2 g/dL (6.4-8.2) 12/13/24 05:04 Albumin 2.0 g/dL (3.4-5.0) L 12/13/24 05:04 Globulin 5.2 g/dL (2.5-4.5) H 12/13/24 05:04 Albumin/Globulin Ratio 0.4 Ratio (1.1-2.1) L 12/13/24 05:04 Plan (1) Non compliance with medical treatment: Status: Acute (2) Cellulitis of right foot: Status: Acute Plan: Patient to be started on IV antibiotics. Will consult the medicine service. Patient will most likely require incision and drainage of the right foot. (3) Uncontrolled diabetes mellitus: Status: Chronic Qualifiers: Diabetes mellitus type: type 1 Glycemic state: with hyperglycemia Q ualified Code(s): E10.65 - Type 1 diabetes mellitus with hyperglycemia (4) Diabetic foot ulcer: Status: Chronic Qualifiers: Diabetes mellitus type: type 2 Diabetic foot ulcer location: toe L aterality: right Non-pressure ulcer stage: with other severity Qualified Code(s): E11.621 - Type 2 diabetes mellitus with foot ulcer; L97.518 - Non- pressure chronic ulcer of other part of right foot with other specified severity (5) Drug abuse, cocaine type: Status: Chronic (6) Smoker unmotivated to quit: Status: Chronic (7) Osteomyelitis: Status: Chronic Qualifiers: Laterality: right Osteomyelitis location: foot Osteomyelitis type: u nspecified type Qualified Code(s): M86.9 - Osteomyelitis, unspecified
--- NOTE | 2024-12-13 14:25 | NOTE.SOAP ---
Soap Note Note for Day of Date of Exam: 12/13/24 Subjective Data Subjective Data: Chart reviewed. Patient being seen by internal medicine. Remains afebrile. Currently being treated for group B streptococcus of the right great toe amputation site with cellulitis. We also try to get his blood sugar under control as he is noncompliant with medical management. Objective Data Temperature: 97.4 F Pulse Rate: 76 Respiratory Rate: 21 Blood Pressure: 112/61 O2 Sat by Pulse Oximetry: 98 Objective Data: Foot is improving. Punctate site of drainage from the skin over the metatarsal of the great toe. Patient may not require additional incision and drainage. Assessment Assessment: Osteomyelitis of the right great toe and left second toe status post ray amputation. Patient with open wounds bilaterally with significant cellulitis of the right foot and poorly controlled blood sugars. Plan Plan: Continue IV antibiotics and control of his blood sugars as per hospitalist service. Patient's problem going forward be the fact he is homeless and is not prone to fill his medications or stay on them.
[2024-12-13] MEDS: HumuLIN 70/30 (NovoLIN 70/30) SC SCH (17:11)
[2024-12-14 06:39] LABS: COR CA(FOR HYPOALB) 9.6 mg/dL (8.5-10.1); COR NA(FOR HYPERGLY) 140 mmol/L (136-145); CREATININE 0.80 mg/dL (0.70-1.30); MEAN PLATELET VOLUME 7.5 fL (7.4-11.0); RED CELL DISTRIBUTION WIDTH 14.1 % (11.6-16.5); eGFR NON BLACK RACES > 60 (>60)
[2024-12-14] MEDS ORDERED: CONSULT PHARMACY - POTASSIUM & MAGNESIUM XX SCH (07:00)
[2024-12-14] MEDS: MAG-OX TAB PO SCH ×2 (09:14→20:37)
[2024-12-14] MEDS: K-DUR TAB 20 MEQ PO SCH (09:15)
[2024-12-15] MEDS: NS 250 ML IV 25 ML IV PRN (06:15)
[2024-12-15 06:23] LABS: MEAN PLATELET VOLUME 7.8 fL (7.4-11.0); RED CELL DISTRIBUTION WIDTH 14.1 % (11.6-16.5)
[2024-12-15 06:35] LABS: COR CA(FOR HYPOALB) 9.5 mg/dL (8.5-10.1); COR NA(FOR HYPERGLY) 144 mmol/L (136-145); CREATININE 0.79 mg/dL (0.70-1.30); eGFR NON BLACK RACES > 60 (>60)
[2024-12-15] MEDS ORDERED: CONSULT PHARMACY - POTASSIUM & MAGNESIUM XX SCH (07:00)
[2024-12-15] MEDS: MAG-OX TAB PO SCH (10:13)
--- NOTE | 2024-12-15 23:24 | NOTE.SOAP ---
Soap Note Note for Day of Date of Exam: 12/14/24 Subjective Data Subjective Data: Redness and drainage continues to improve of the right foot. Blood sugar still markedly elevated. Medicine service has signed off started him on insulin 70/30 Objective Data Temperature: 97.8 F Pulse Rate: 86 Respiratory Rate: 18 Blood Pressure: 117/58 O2 Sat by Pulse Oximetry: 99 Objective Data: as above Assessment Assessment: Status post previous amputation of right great toe and left second toe. Patient now with cellulitis of the right great toe. Both wounds are open. On antibiotics. Blood sugars under mainly better control after medicine consultation and started on humulin 70/30. Plan Plan: Continue IV antibiotics, wound dressings and glycemic control
--- NOTE | 2024-12-15 23:29 | NOTE.SOAP ---
Soap Note Note for Day of Date of Exam: 12/15/24 Subjective Data Subjective Data: See previous notes. Redness of the right foot nearly resolved. Blood sugars 396 today Objective Data Temperature: 97.8 F Pulse Rate: 86 Respiratory Rate: 18 Blood Pressure: 117/58 O2 Sat by Pulse Oximetry: 99 Objective Data: as above Assessment Assessment: Cellulitis right foot. Open wound left foot, hyperglycemia Plan Plan: I do not think additional incision and drainage will be acquired. Will need to complete IV antibiotics. The biggest problem will be discharge as he is homeless.
[2024-12-16 05:46] LABS: MEAN PLATELET VOLUME 7.4 fL (7.4-11.0); RED CELL DISTRIBUTION WIDTH 14.2 % (11.6-16.5)
[2024-12-16 05:58] LABS: COR CA(FOR HYPOALB) 9.7 mg/dL (8.5-10.1); COR NA(FOR HYPERGLY) 142 mmol/L (136-145); CREATININE 0.83 mg/dL (0.70-1.30); eGFR NON BLACK RACES > 60 (>60)
--- NOTE | 2024-12-16 18:07 | NOTE.SOAP ---
Soap Note Note for Day of Date of Exam: 12/16/24 Subjective Data Subjective Data: Patient who is diabetic, homeless and poorly controlled who has had amputation of the right great toe and left second toe second osteomyelitis. Patient presented with cellulitis of the right great toe and treated with IV antibiotics. Medicine service has seen the patient and started him on insulin 70/30. Blood sugar still greater than 300 today.. Patient remained afebrile tolerating diet well. Cultures have grown out group B streptococcus which is sensitive to the antibiotics he is on. Objective Data Temperature: 97.7 F Pulse Rate: 87 Respiratory Rate: 20 Blood Pressure: 134/66 O2 Sat by Pulse Oximetry: 97 Objective Data: Patient is has resolved of the right foot. Drainage is markedly reduced. Wound measures 3 cm in diameter with some granulation tissue. Amputation site of left second toe is healing nicely. Eschar partially resolved wound measures 1.5 cm in diameter and 0.2 cm in depth. No redness here either. Growing group B streptococcus. Assessment Assessment: We will seek placement at a homeless detention or some type of facility where the patient can stay as if he is not treated he has significant risk of limb loss. Plan Plan: as above
[2024-12-16] MEDS ORDERED: CONSULT PHARMACY - POTASSIUM & MAGNESIUM XX SCH (20:00)
[2024-12-16 20:28] VITALS: O2SAT 98
[2024-12-16] MEDS: MAG-OX TAB PO SCH (20:49)
[2024-12-17 03:43] VITALS: BP 125/66
[2024-12-17 08:00] VITALS: PULSE 83; RESP 20; TEMP 97.7
--- NOTE | 2024-12-17 08:40 | W.DIS.FURT ---
Summary of Discharge Discharge Summary of Date Date of Exam: 12/17/24 Admission Date Date of Admission: 01/08/25 Admission Diagnosis Hospital Course: Is a 34-year-old male who is currently homeless and is not compliant with medications who is known to be severely diabetic and has had amputation of osteomyelitis of the right great toe and left second toe. He presented my office with significant cellulitis of the right foot and was admitted for IV antibiotics and control of his blood sugar. He was seen in consultation by the medicine service and they placed him on Humulin 70/30 to be given twice a day. He was treated with IV antibiotics and subsequently cultures grew group B streptococcus and his cellulitis resolved. He did not require surgical drainage. The left second toe amputation site is healing very well with eschar resolved and the wound is 1.5 m in diameter only 2 mm deep. Cellulitis resolved of the right great toe ray amputation site with open wound measuring 3 cm in diameter and 3 mm in depth with early granulation tissue and no significant drainage at this time. He will be discharged home on p.o. Septra DS 1 twice daily. He also will be started on the Humulin 70/30 . Both of these will be given to him by [facility] as he is homeless and without a funding source. I have recommended that he seek senior living at the homeless senior living in [place]. Also recommend he contact his family. Follow-up me in 1 week. Vital Signs: Vital Signs (72 hours) 12/14/24 08:28 12/14/24 10:14 12/14/24 11:56 Temperature 98.1 F 97.6 F Pulse Rate Pulse Rate [Right Brachial] 77 73 Respiratory Rate 18 18 Blood Pressure Blood Pressure [Left Arm] 125/63 111/55 Blood Pressure [Right Arm] O2 Sat by Pulse Oximetry 99 98 Oxygen Delivery Method Room Air Room Air Room Air 12/14/24 16:47 12/14/24 19:00 12/14/24 20:00 Temperature 97.8 F 97.6 F Pulse Rate Pulse Rate [Right Brachial] 86 88 Respiratory Rate 18 18 Blood Pressure Blood Pressure [Left Arm] 117/58 118/66 Blood Pressure [Right Arm] O2 Sat by Pulse Oximetry 99 98 Oxygen Delivery Method Room Air Room Air Room Air 12/14/24 23:45 12/15/24 03:47 12/15/24 07:26 Temperature 98.1 F 98.0 F 97.6 F Pulse Rate Pulse Rate [Right Brachial] 89 85 85 Respiratory Rate 18 18 16 Blood Pressure Blood Pressure [Left Arm] 128/68 130/66 121/61 Blood Pressure [Right Arm] O2 Sat by Pulse Oximetry 99 100 98 Oxygen Delivery Method Room Air Room Air Room Air 12/15/24 09:08 12/15/24 11:31 12/15/24 15:44 Temperature 98.3 F 97.9 F Pulse Rate Pulse Rate [Right Brachial] 87 96 H Respiratory Rate 16 20 Blood Pressure Blood Pressure [Left Arm] 101/57 120/71 Blood Pressure [Right Arm] O2 Sat by Pulse Oximetry 98 99 Oxygen Delivery Method Room Air Room Air Room Air 12/15/24 19:00 12/15/24 20:00 12/15/24 23:23 Temperature 98.2 F 97.8 F Pulse Rate 86 Pulse Rate [Right Brachial] 94 H Respiratory Rate 20 18 Blood Pressure 117/58 Blood Pressure [Left Arm] 119/60 Blood Pressure [Right Arm] O2 Sat by Pulse Oximetry 98 99 Oxygen Delivery Method Room Air Room Air 12/15/24 23:29 12/15/24 23:43 12/16/24 04:00 Temperature 97.8 F 98.1 F 98.0 F Pulse Rate 86 Pulse Rate [Right Brachial] 92 H 78 Respiratory Rate 18 20 19 Blood Pressure 117/58 Blood Pressure [Left Arm] 129/63 125/62 Blood Pressure [Right Arm] O2 Sat by Pulse Oximetry 99 99 97 Oxygen Delivery Method Room Air Room Air 12/16/24 07:00 12/16/24 07:26 12/16/24 12:00 Temperature 97.2 F L 97.1 F L Pulse Rate Pulse Rate [Right Brachial] 82 87 Respiratory Rate 19 20 Blood Pressure Blood Pressure [Left Arm] 129/65 136/60 Blood Pressure [Right Arm] O2 Sat by Pulse Oximetry 98 98 Oxygen Delivery Method Room Air Room Air Room Air 12/16/24 12:00 12/16/24 16:00 12/16/24 18:06 Temperature 97.1 F L 97.7 F 97.7 F Pulse Rate 87 Pulse Rate [Right Brachial] 87 87 Respiratory Rate 20 20 20 Blood Pressure 134/66 Blood Pressure [Left Arm] 136/60 136/60 Blood Pressure [Right Arm] 134/66 O2 Sat by Pulse Oximetry 98 97 97 Oxygen Delivery Method Room Air Room Air 12/16/24 19:00 12/16/24 20:00 12/17/24 00:00 Temperature 98.4 F 97.6 F Pulse Rate Pulse Rate [Right Brachial] 96 H 86 Respiratory Rate 19 19 Blood Pressure Blood Pressure [Left Arm] Blood Pressure [Right Arm] 112/58 122/65 O2 Sat by Pulse Oximetry 98 98 Oxygen Delivery Method Room Air Room Air Room Air 12/17/24 03:42 12/17/24 07:00 12/17/24 08:00 Temperature 97.8 F 97.7 F Pulse Rate Pulse Rate [Right Brachial] 81 83 Respiratory Rate 19 20 Blood Pressure Blood Pressure [Left Arm] 125/66 125/66 Blood Pressure [Right Arm] 114/58 O2 Sat by Pulse Oximetry 98 98 Oxygen Delivery Method Room Air Room Air Room Air Labs: Laboratory Last Values WBC 5.0 X10^3/uL (3.6-10.0) 12/16/24 05:20 RBC 4.21 X10^6/uL (4.7-6.0) L 12/16/24 05:20 Hgb 11.8 g/dL (13.5-18.0) L 12/16/24 05:20 Hct 34.6 % (42.0-54.0) L 12/16/24 05:20 MCV 82.2 fL (80.0-100.0) 12/16/24 05:20 MCH 28.1 pg (27.0-34.0) 12/16/24 05:20 MCHC 34.1 g/dL (33.0-35.0) 12/16/24 05:20 RDW 14.2 % (11.6-16.5) 12/16/24 05:20 Plt Count 251 X10^3/uL (150.0-450.0) 12/16/24 05:20 MPV 7.4 fL (7.4-11.0) 12/16/24 05:20 Neut % (Auto) 39.5 % (42.0-75.0) L 12/16/24 05:20 Lymph % (Auto) 49.8 % (21.0-51.0) 12/16/24 05:20 Gregg % (Auto) 7.8 % (0.0-13.0) 12/16/24 05:20 Eos % (Auto) 2.2 % (0.9-2.9) 12/16/24 05:20 Baso % (Auto) 0.7 % (0.2-1.0) 12/16/24 05:20 Neut # (Auto) 2.0 x10^3/uL (2.2-4.8) L 12/16/24 05:20 Lymph # (Auto) 2.5 X10^3/uL (1.3-2.9) 12/16/24 05:20 Gregg # (Auto) 0.4 x10^3/uL (0.3-0.8) 12/16/24 05:20 Eos # (Auto) 0.1 x10^3/uL (0.0-0.2) 12/16/24 05:20 Baso # (Auto) 0.0 X10^3/uL (0.0-0.1) 12/16/24 05:20 Absolute Nucleated RBC 0.1 /100WBC 12/16/24 05:20 Sodium 136 mmol/L (136-145) 12/16/24 05:20 Corrected Sodium 142 mmol/L (136-145) 12/16/24 05:20 Potassium 4.4 mmol/L (3.5-5.1) 12/16/24 05:20 Chloride 101 mmol/L (98-107) 12/16/24 05:20 Carbon Dioxide 32.6 mmol/L (21-32) H 12/16/24 05:20 BUN 12 mg/dL (7-18) 12/16/24 05:20 Creatinine 0.83 mg/dL (0.70-1.30) 12/16/24 05:20 Est GFR (MDRD) Af Amer > 60 (>60) 12/16/24 05:20 Est GFR (MDRD) Non-Af > 60 (>60) 12/16/24 05:20 Glucose 334 mg/dL (65-99) H 12/16/24 05:20 POC Glucose (mg/dL) 300 mg/dL (65-99) H 12/17/24 05:29 Calcium 8.5 mg/dL (8.5-10.1) 12/16/24 05:20 Corrected Calcium 9.7 mg/dL (8.5-10.1) 12/16/24 05:20 Magnesium 1.6 mg/dL (2.0-2.9) L 12/16/24 05:20 Total Bilirubin 0.20 mg/dL (0.2-1.0) 12/16/24 05:20 AST 15 Units/L (15-37) 12/16/24 05:20 ALT 21 Units/L (12-78) 12/16/24 05:20 Alkaline Phosphatase 79 Units/L (46-116) 12/16/24 05:20 Total Protein 7.7 g/dL (6.4-8.2) 12/16/24 05:20 Albumin 2.5 g/dL (3.4-5.0) L 12/16/24 05:20 Globulin 5.2 g/dL (2.5-4.5) H 12/16/24 05:20 Albumin/Globulin Ratio 0.5 Ratio (1.1-2.1) L 12/16/24 05:20 Reason For Visit: INFECTED RIGHT FPPT WOUND Discharge Date Discharge Date: 12/17/24 Discharge Diagnosis All Active Problems Uncontrolled diabetes mellitus (Chronic) Non compliance with medical treatment (Acute) Cellulitis of right foot (Acute) Osteomyelitis (Chronic) Sepsis (Acute) Hyponatremia (Acute) Diabetic foot ulcer (Chronic) Drug abuse, cocaine type (Chronic) Smoker unmotivated to quit (Chronic) Plan of Treatment: Continue with present treatment and follow up plan. Pt is to keep follow up appointment as instructed and take medications as ordered. Discharge Medications Discharge Medications: No Known Allergies Allergy (Verified 12/09/24 16:34) CONTINUE taking the following medications NK 12/15/24 [History] Humulin 70/30, 25 units every 12 hours Septra DS, 1 p.o. twice daily Discharge Disposition Assessment: see hospital course Discharge Plan Discharge Plan Hospital Course: Is a 34-year-old male who is currently homeless and is not compliant with medications who is known to be severely diabetic and has had amputation of osteomyelitis of the right great toe and left second toe. He presented my office with significant cellulitis of the right foot and was admitted for IV antibiotics and control of his blood sugar. He was seen in consultation by the medicine service and they placed him on Humulin 70/30 to be given twice a day. He was treated with IV antibiotics and subsequently cultures grew group B streptococcus and his cellulitis resolved. He did not require surgical drainage. The left second toe amputation site is healing very well with eschar resolved and the wound is 1.5 m in diameter only 2 mm deep. Cellulitis resolved of the right great toe ray amputation site with open wound measuring 3 cm in diameter and 3 mm in depth with early granulation tissue and no significant drainage at this time. He will be discharged home on p.o. Septra DS 1 twice daily. He also will be started on the Humulin 70/30 . Both of these will be given to him by [facility] as he is homeless and without a funding source. I have recommended that he seek senior living at the homeless senior living in [place]. Also recommend he contact his family. Follow-up me in 1 week. Patient Disposition: 01 HOME, SELF-CARE Condition: Stable Health Concerns: Post Hospitalization: new medications and changes needed to prevent readmission or further decline. Pt educated and given instructions on all concerns. Care Plan Goals: Problem: Infection Goal: Temperature within normal limits. Resolved infection. Instructions: Follow provided instructions. Follow up with primary physician as directed. Contact primary care physician or report to the closest Emergency Room if condition worsens. Plan of Treatment: Continue with present treatment and follow up plan. Pt is to keep follow up appointment as instructed and take medications as ordered. Assessment: see hospital course Prescription drug monitoring program results: PDMP was not reviewed Prescriptions: New Humulin 70/30 U-100 Insulin 100 unit/mL (70-30) suspension 25 unit subcut BID Qty: 10 0RF sulfamethoxazole-trimethoprim [Bactrim DS] 800-160 mg tablet 1 tab PO Q12H Qty: 14 0RF Follow ups/Referrals Follow ups/Referrals: [facility] [Primary Care Provider, Unknown] - 12/24/24 4:00 pm Instructions Instructions: Cellulitis, Adult, [id number], Wound Care, Adult, Hypertension, Adult, [id number], Diabetes Mellitus and Nutrition Stand Alone Forms: Find Help Web Site, Post Hospital Follow Up Care Print Language: BENGALI
== END 2024-12-17 09:20 | disposition home or self-care (01) | DRG 603 ==
LOC: MED/SURG
PROVIDERS: ADMIT Surgery; ATTEND Surgery
DX: L97.518 Non-pressure chronic ulcer of other part of right foot with other specified severity; F12.20 Cannabis dependence, uncomplicated; Z59.00 Homelessness unspecified; Z89.422 Acquired absence of other left toe(s); Z91.199 Patient's noncompliance with other medical treatment and regimen due to unspecified reason; E87.1 Hypo-osmolality and hyponatremia; L03.115 Cellulitis of right lower limb; F14.10 Cocaine abuse, uncomplicated; I10 Essential (primary) hypertension; E11.621 Type 2 diabetes mellitus with foot ulcer; M86.671 Other chronic osteomyelitis, right ankle and foot; Z89.411 Acquired absence of right great toe; E11.65 Type 2 diabetes mellitus with hyperglycemia; Z59.86 Financial insecurity